=== PATIENT | female | born 1970 | race Caucasian/White ===

== ENCOUNTER 2023-03-15 12:40 | Inpatient (IN) | payer OTHER ==
[~2023-03-15] VITALS: Ht 165.1 cm; Wt 103.9 kg
[2023-03-15 14:09] LABS: Basophils # (auto) 0.1 10 ^3/uL (0-0.2); Basophils % (auto) 0.9 % (0.0-2.0); Eosinophils # (auto) 0.1 10 ^3/uL (0-0.8); Eosinophils % (auto) 1.2 % (0.0-7.0); Hematocrit 44.1 % (36.0-46.0); Hemoglobin 15.1 g/dL (12.2-16.2); Lymphocytes # (auto) 0.5 10 ^3/uL (0.4-5.4); Lymphocytes % (auto) 8.3 % (10.0-50.0); Mean Corpuscular Hemoglobin 30.4 pg (28.0-32.0); Mean Corpuscular Hgb Conc. 34.3 g/dL (32.0-36.0); Mean Corpuscular Volume 88.8 fL (80.0-100.0); Monocytes # (auto) 0.4 10 ^3/uL (0-1.3); Monocytes % (auto) 6.4 % (0.0-12.0); Neutrophils % (auto) 83.2 % (37.0-80.0); Nucleated Red Blood Cells % 0.2 %; Red Blood Cells 4.97 10^6/uL (4.0-5.20); Red Cell Distribution Width 13.6 % (11.8-14.3)
[2023-03-15 14:21] LABS: Urine Bacteria NONE SEEN /hpf (None Seen); Urine Blood Negative /uL (Negative); Urine Clarity Clear (Clear); Urine Color Yellow (Yellow); Urine Protein, UAD Negative (Negative); Urine Specific Gravity 1.011 (1.001-1.035); Urine Urobilinogen Normal (Negative); Urine WBC <1 /hpf (0 - 5); Urine pH 7.5 (5.0-8.0)
[2023-03-15] MEDS ORDERED: SODIUM CHLORIDE 0.9% 1,000 ML IV ONE ×2 (14:30→22:00)
[2023-03-15 14:39] LABS: Alanine Aminotransferase 49 U/L (7-40); Albumin 4.9 g/dL (3.2-4.8); Alkaline Phosphatase 84 U/L (46-116); Anion Gap 7 (5-15); Aspartate Aminotransferase 25 U/L (13-40); BUN/Creatinine Ratio 11.7 (10.0-20.0); Blood Urea Nitrogen 13 mg/dL (9-23); Calcium 9.5 mg/dL (8.7-10.4); Carbon Dioxide 28 mmol/L (20-30); Chloride 102 mmol/L (98-107); Glucose 128 mg/dL (74-106); Potassium 4.1 mmol/L (3.5-5.1); Sodium 137 mmol/L (136-145)
[2023-03-15 14:40] LABS: Bilirubin, Total 0.7 mg/dL (0.2-1.0); Total Protein 7.3 g/dL (5.7-8.2)
[2023-03-15] MEDS ORDERED: IOHEXOL 350 MG/ML 100ML IJ ONE (15:17)
[2023-03-15] MEDS ORDERED: ENOXAPARIN SOD 100 MG/1 ML SYRINGE SC ONE (16:30)
[2023-03-15] MEDS ORDERED: ACETAMINOPHEN 325 MG TAB PO ONE (16:45)
[2023-03-15 19:13] VITALS: PULSE 101; RESP 20; O2SAT 97
[2023-03-15 19:40] VITALS: RESP 18; O2SAT 97
[2023-03-15] MEDS ORDERED: TOPI25TA84 PO (21:57)
[2023-03-15] MEDS ORDERED: DOCUSATE SOD 100 MG CAP PO PRN (22:00)
[2023-03-15] MEDS ORDERED: ONDANSETRON HCL 4 MG/2 ML VIAL IV PRN (22:00)
[2023-03-15] MEDS ORDERED: ACETAMINOPHEN 325 MG TAB PO PRN (22:00)
[2023-03-15] MEDS ORDERED: ENOXAPARIN SOD 100 MG/1 ML SYRINGE SC SCH (22:00)
[2023-03-15] MEDS ORDERED: NITROGLYCERIN 0.4 MG SL TAB SL PRN (22:00)
[2023-03-15] MEDS ORDERED: MORPHINE SULFATE INJ 2 MG/ml SYRG IV PRN (22:00)
[2023-03-15] MEDS: TOPIRAMATE 25 MG TAB PO SCH (22:11)
[2023-03-15] MEDS: ATORVASTATIN 20 MG TAB PO SCH (22:11)
[2023-03-15 22:13] LABS: INR 1.1 (0.9-1.15); Partial Thromboplastin Time 39.9 SEC (24.5-34.5); Prothrombin Time 11.5 sec (9.3-11.8)
[2023-03-15] MEDS ORDERED: PANTOPRAZOLE 40 MG TAB PO ONE (22:15)
[2023-03-15 23:10] LABS: Rapid Influenza A Negative (Negative); Rapid Influenza B Negative (Negative)
[2023-03-15 23:13] LABS: COVID19 ANTIGEN SOFIA FIA POSITIVE (NEGATIVE)
[2023-03-15] MEDS ORDERED: ACETAMINOPHEN 500 MG TAB PO PRN (23:30)
[2023-03-16] MEDS ORDERED: HEPARIN DRIP/D5W 100UNITS/ML 250 ML IV SCH ×2 (03:00→05:00)
[2023-03-16 04:20] VITALS: RESP 16; O2SAT 96
[2023-03-16 06:46] LABS: Basophils # (auto) 0 10 ^3/uL (0-0.2); Eosinophils # (auto) 0 10 ^3/uL (0-0.8); Eosinophils % (auto) 0.6 % (0.0-7.0); Hematocrit 38.5 % (36.0-46.0); Hemoglobin 13.3 g/dL (12.2-16.2); Lymphocytes # (auto) 1.1 10 ^3/uL (0.4-5.4); Lymphocytes % (auto) 28.6 % (10.0-50.0); Mean Corpuscular Hemoglobin 30.9 pg (28.0-32.0); Mean Corpuscular Hgb Conc. 34.6 g/dL (32.0-36.0); Mean Corpuscular Volume 89.2 fL (80.0-100.0); Monocytes # (auto) 0.5 10 ^3/uL (0-1.3); Monocytes % (auto) 11.8 % (0.0-12.0); Neutrophils # (auto) 2.2 10 ^3/uL (1.6-8.6); Nucleated Red Blood Cells % 0.1 %; Red Blood Cells 4.32 10^6/uL (4.0-5.20); Red Cell Distribution Width 13.4 % (11.8-14.3); White Blood Cell 3.9 10^3/uL (4.4-10.8)
[2023-03-16 07:11] LABS: Alanine Aminotransferase 38 U/L (7-40); Alkaline Phosphatase 65 U/L (46-116); Anion Gap 10 (5-15); Aspartate Aminotransferase 22 U/L (13-40); BUN/Creatinine Ratio 11.3 (10.0-20.0); Blood Urea Nitrogen 11 mg/dL (9-23); Calcium 9.1 mg/dL (8.5-10.1); Carbon Dioxide 25 mmol/L (20-30); Chloride 105 mmol/L (98-107); Glucose 114 mg/dL (74-106); Potassium 3.6 mmol/L (3.5-5.1); Sodium 140 mmol/L (136-145)
[2023-03-16 07:12] LABS: Albumin 4.1 g/dL (3.2-4.8)
[2023-03-16 07:13] LABS: Bilirubin, Total 0.6 mg/dL (0.2-1.0); Total Protein 6.3 g/dL (5.7-8.2)
[2023-03-16 08:00] VITALS: PULSE 87; RESP 21; O2SAT 94
[2023-03-16 09:34] VITALS: BP 112/65; PULSE 87; RESP 21; TEMP 98.2; O2SAT 94
[2023-03-16] MEDS ORDERED: hydroCHLOROthiazide 25 MG TAB PO SCH (10:00)
[2023-03-16] MEDS: BUDESONIDE (INHALATION) 180 MCG IH IN SCH ×2 (10:00→23:09)
[2023-03-16] MEDS ORDERED: DexAMETHasone SOD PHOS 10MG/1ML VIAL INJ IV SCH (10:00)
[2023-03-16 11:30] VITALS: PULSE 85; RESP 18; O2SAT 95; O2SAT 96
[2023-03-16] MEDS: AZITHROMYCIN 500MG/ 250ML 250 ML IV SCH (11:38)
[2023-03-16] MEDS: ZINC SULFATE 220mg CAP or TAB PO SCH (11:39)
[2023-03-16] MEDS: PANTOPRAZOLE 40 MG TAB PO SCH (11:40)
[2023-03-16] MEDS: ASCORBIC ACID 1,000 MG TAB PO SCH (11:40)
[2023-03-16] MEDS: CHOLECALCIFEROL (VITD3) 2,000 UNIT CAP/TAB PO SCH (11:40)
[2023-03-16 12:56] LABS: INR 1.08 (0.9-1.15); Prothrombin Time 11.3 sec (9.3-11.8)
[2023-03-16 13:07] LABS: Partial Thromboplastin Time 116.4 SEC (24.5-34.5)
[2023-03-16 21:10] VITALS: BP 117/71; PULSE 79; RESP 20; O2SAT 94
[2023-03-16] MEDS: TOPIRAMATE 25 MG TAB PO SCH (21:44)
[2023-03-16] MEDS: ATORVASTATIN 20 MG TAB PO SCH (21:44)
[2023-03-16] MEDS: ENOXAPARIN SOD 100 MG/1 ML SYRINGE SC SCH (21:44)
[2023-03-16] MEDS ORDERED: HYDR25TA5 PO (21:50)
[2023-03-16] MEDS ORDERED: ATOR20TA PO (21:50)
[2023-03-16 22:00] VITALS: BP 117/71; PULSE 79; RESP 20; TEMP 98; O2SAT 94
[2023-03-16] MEDS: ALBUTEROL SULF HFA 90MCG INH 200DOSE IN PRN (23:09)
[2023-03-17] VITALS (10 sets, daily range): BP systolic 108–139; BP diastolic 58–81; PULSE 55–89; RESP 16–20; TEMP 97.6–97.9; O2SAT 95–98
[2023-03-17 06:53] LABS: Anion Gap 10 (5-15); Carbon Dioxide 26 mmol/L (20-30); Chloride 106 mmol/L (98-107); Potassium 3.4 mmol/L (3.5-5.1); Sodium 142 mmol/L (136-145)
[2023-03-17 06:54] LABS: Calcium 9.6 mg/dL (8.5-10.1)
[2023-03-17 06:57] LABS: Basophils # (auto) 0 10 ^3/uL (0-0.2); Basophils % (auto) 0.3 % (0.0-2.0); Eosinophils # (auto) 0 10 ^3/uL (0-0.8); Hematocrit 42.1 % (36.0-46.0); Hemoglobin 14.4 g/dL (12.2-16.2); Lymphocytes # (auto) 1.2 10 ^3/uL (0.4-5.4); Lymphocytes % (auto) 28.3 % (10.0-50.0); Mean Corpuscular Hemoglobin 30.6 pg (28.0-32.0); Mean Corpuscular Hgb Conc. 34.2 g/dL (32.0-36.0); Mean Corpuscular Volume 89.6 fL (80.0-100.0); Monocytes # (auto) 0.4 10 ^3/uL (0-1.3); Monocytes % (auto) 8.2 % (0.0-12.0); Neutrophils # (auto) 2.8 10 ^3/uL (1.6-8.6); Neutrophils % (auto) 63.2 % (37.0-80.0); Nucleated Red Blood Cells % 0.2 %; Red Cell Distribution Width 13.2 % (11.8-14.3); White Blood Cell 4.4 10^3/uL (4.4-10.8)
[2023-03-17 06:59] LABS: BUN/Creatinine Ratio 8.6 (10.0-20.0); Blood Urea Nitrogen 8 mg/dL (9-23); Glucose 116 mg/dL (74-106)
[2023-03-17] MEDS: AZITHROMYCIN 500MG/ 250ML 250 ML IV SCH (10:36)
[2023-03-17] MEDS: ENOXAPARIN SOD 100 MG/1 ML SYRINGE SC SCH ×2 (10:36→21:18)
[2023-03-17] MEDS: CHOLECALCIFEROL (VITD3) 2,000 UNIT CAP/TAB PO SCH (10:37)
[2023-03-17] MEDS: PANTOPRAZOLE 40 MG TAB PO SCH (10:37)
[2023-03-17] MEDS: ZINC SULFATE 220mg CAP or TAB PO SCH (10:37)
[2023-03-17] MEDS: ASCORBIC ACID 1,000 MG TAB PO SCH (10:37)
[2023-03-17] MEDS: ALBUTEROL SULF HFA 90MCG INH 200DOSE IN PRN ×2 (11:43→21:39)
[2023-03-17] MEDS: BUDESONIDE (INHALATION) 180 MCG IH IN SCH ×2 (11:44→21:39)
[2023-03-17] MEDS ORDERED: POTASSIUM CHL 20 Meq TABLET PO ONE (14:30)
[2023-03-17] MEDS: TOPIRAMATE 25 MG TAB PO SCH (21:17)
[2023-03-17] MEDS: ATORVASTATIN 20 MG TAB PO SCH (21:17)
[2023-03-18 05:00] VITALS: BP 121/76; PULSE 75; RESP 16; TEMP 98.2; O2SAT 98
[2023-03-18 06:10] LABS: Anion Gap 9 (5-15); Basophils # (auto) 0 10 ^3/uL (0-0.2); Basophils % (auto) 0.8 % (0.0-2.0); Carbon Dioxide 24 mmol/L (20-30); Chloride 107 mmol/L (98-107); Eosinophils # (auto) 0 10 ^3/uL (0-0.8); Eosinophils % (auto) 0.7 % (0.0-7.0); Hematocrit 41.6 % (36.0-46.0); Hemoglobin 14.3 g/dL (12.2-16.2); Lymphocytes # (auto) 2.3 10 ^3/uL (0.4-5.4); Lymphocytes % (auto) 46.6 % (10.0-50.0); Mean Corpuscular Hemoglobin 30.6 pg (28.0-32.0); Mean Corpuscular Hgb Conc. 34.4 g/dL (32.0-36.0); Mean Corpuscular Volume 89.1 fL (80.0-100.0); Monocytes # (auto) 0.3 10 ^3/uL (0-1.3); Monocytes % (auto) 5.2 % (0.0-12.0); Neutrophils # (auto) 2.4 10 ^3/uL (1.6-8.6); Neutrophils % (auto) 46.7 % (37.0-80.0); Nucleated Red Blood Cells % 0.3 %; Potassium 3.9 mmol/L (3.5-5.1); Red Blood Cells 4.67 10^6/uL (4.0-5.20); Red Cell Distribution Width 13.1 % (11.8-14.3); Sodium 140 mmol/L (136-145)
[2023-03-18 06:12] LABS: Calcium 9.2 mg/dL (8.7-10.4)
[2023-03-18 06:16] LABS: BUN/Creatinine Ratio 9.5 (10.0-20.0); Blood Urea Nitrogen 10 mg/dL (9-23); Glucose 113 mg/dL (74-106)
== END 2023-03-18 07:58 | disposition short-term general hospital (02) | DRG 175 ==
LOC: ER 12:40 → TELE 21:55 → TELE-WESTW 03-16 19:50
PROVIDERS: ADMIT Nurse Practitioner Family; ATTEND Internal Medicine
DX: I26.99 Other pulmonary embolism without acute cor pulmonale (principal); J12.82 Pneumonia due to coronavirus disease 2019; U07.1 COVID-19; D68.51 Activated protein C resistance; N17.9 Acute kidney failure, unspecified; J45.909 Unspecified asthma, uncomplicated; I10 Essential (primary) hypertension; R73.03 Prediabetes; G43.909 Migraine, unspecified, not intractable, without status migrainosus; E78.5 Hyperlipidemia, unspecified; E66.9 Obesity, unspecified; Z78.9 Other specified health status; Z68.38 Body mass index [BMI] 38.0-38.9, adult; Z88.0 Allergy status to penicillin; Z88.5 Allergy status to narcotic agent; Z88.8 Allergy status to other drugs, medicaments and biological substances; Z91.040 Latex allergy status
CPT/HCPCS: 36415; 70450; 71045; 71275; 72125; 80048; 80053; 81001; 81241; 82728; 83605; 83690; 83735; 84443; 84484; 85025; 85379; 85610; 85730; 87040; 87426; 87804; 93005; 93306; 93971; 94640; G0378; J1100